=== PATIENT | female | born 1930 | race Caucasian/White ===

== ENCOUNTER 2017-10-20 09:55 | Inpatient (IN) ==
[2017-10-20] MEDS ORDERED: ONDANSETRON 4 MG/2 ML INJECTION IVP ONE (10:09)
[2017-10-20] MEDS ORDERED: SALINE FLUSH 10ml SYRINGE IVF PRN (10:09)
[2017-10-20] MEDS ORDERED: NS 1,000 ML IV SCH ×2 (10:30→14:30)
[2017-10-20] MEDS ORDERED: NITROGLYCERIN 50MG INJECTION IV ONE (10:48)
[2017-10-20] MEDS ORDERED: MIDAZOLAM 2mg/2ml INJECTION ONE ×2 (10:48→12:23)
[2017-10-20] MEDS ORDERED: FentaNYL 100 MCG/2 ML INJECTION ONE (10:48)
[2017-10-20] MEDS ORDERED: LIDOCAINE 1% (10mg/ml) 30ml SDV INJ ONE (10:49)
[2017-10-20] MEDS ORDERED: SALINE FLUSH 10ml SYRINGE ONE (10:49)
[2017-10-20] MEDS ORDERED: HEPARIN 1,000 UNITS/500 ML PREMIX (*CVL ONLY*) IV ONE (10:49)
[2017-10-20] MEDS ORDERED: BACITRACIN 50,000 UNIT INJECTION ONE (10:49)
--- NOTE | 2017-10-20 11:03 | XRay Report ---
Indication: chest pain PROCEDURE: XR chest 1V: Encounter: Initial Comparison: None FINDINGS: The lungs are clear. There is no abnormal airspace opacity, pleural effusion or pneumothorax identified. The heart size, pulmonary vasculature and mediastinum are within normal limits. Chronic right rotator cuff tear. IMPRESSION: No acute cardiopulmonary abnormality. .
[2017-10-20] MEDS ORDERED: PHENYLEPHRINE INJ 10 MG/ML VIAL IV ONE (11:30)
[2017-10-20] MEDS ORDERED: ATROPINE 1 MG/10 ML SYRINGE ONE (11:31)
[2017-10-20] MEDS ORDERED: HEPARIN 1,000unit/ml INJECTION 10ml IVP ONE (13:31)
[2017-10-20] MEDS ORDERED: SALINE FLUSH 10ml SYRINGE IV PRN (14:30)
[2017-10-20] MEDS ORDERED: PROMETHAZINE 25 MG INJECTION IVP PRN (14:30)
[2017-10-20] MEDS ORDERED: BISACODYL 10 MG SUPPOSITORY RECTALLY PRN (14:30)
[2017-10-20] MEDS ORDERED: ATROPINE 1 MG/ML INJECTION IVP PRN (14:30)
[2017-10-20] MEDS ORDERED: NITROGLYCERIN 0.4 MG SUBLINGUAL TABLET SL PRN (14:30)
[2017-10-20] MEDS ORDERED: HYDROCODONE/APAP 5mg/325mg TABLET PO PRN (14:30)
[2017-10-20] MEDS ORDERED: LORazepam 0.5 MG TABLET PO PRN (14:30)
[2017-10-20] MEDS ORDERED: Bisacodyl EC TAB 5 MG TABLET PO PRN (14:30)
[2017-10-20] MEDS ORDERED: METOCLOPRAMIDE 10mg/2ml INJECTION IVP PRN (14:30)
[2017-10-20] MEDS ORDERED: ACETAMINOPHEN 325 MG TABLET PO PRN (14:30)
[2017-10-20] MEDS ORDERED: MORPHINE SULFATE 4mg INJECTION IVP PRN ×2 (14:30)
[2017-10-20] MEDS ORDERED: MAG-AL + SIM ORAL LIQUID 30ml PO PRN (14:30)
[2017-10-20] MEDS ORDERED: ONDANSETRON 4 MG/2 ML INJECTION IVP PRN (14:30)
[2017-10-20 15:21] VITALS: BMI 29.2
--- NOTE | 2017-10-20 15:21 | XRay Report ---
Indication: post ppm PROCEDURE: XR chest 1V: Encounter: Initial Comparison: October 20, 2017 Findings: New left dual lead cardiac pacemaker with right atrial and right ventricular leads. Increasing interstitial prominence compared to the prior study with trace left basilar atelectasis. No pneumothorax or definite pleural effusion. Heart size and mediastinal contours are stable. Impression: 1. New left pacemaker without evidence of immediate complication. 2. Mild pulmonary vascular congestion. .
[2017-10-20] MEDS: CEFAZOLIN 1 G in NS 100 ML IV SCH ×2 (15:54→22:31)
--- NOTE | 2017-10-20 19:15 | Cardiology History & Physical ---
History of Present Illness Chief complaint: bradycardia HPI: 87 yo wf w/o prior known heart disease who was [place] [facility] from the primary doctor's office due to bradycardia. She hasn't been feeling well now for about a week. She's being expressing more fatigue and shortness of breath. She had an episode of fatigue and dyspnea , on Wednesday when she went shopping at the mall went only to one store. Last evening also she wasn't feeling well, she had a second "spell ", this time she got shortness of breath lightheadedness and nauseated. She has been experiencing some left shoulder pain radiating to the scapula and down the left upper chest that has been happening with and without activity. denies injury or fall and no change with shoulder movement. In ER evaluation showed her to be in complete heart block heart rate in the 30s and blood pressure stable. She denies any recent falls or syncope. No new meds were started. She denies a previous heart catheterization stress test,known [place] or dysrhythmia. Hx is limited by her dementia Review of Systems All systems PM: 10-point ROS was reviewed, no additional remarkable complaints except - Constitutional Constitutional: Present: weakness. Absent: chills, fever(s), night sweats, weight gain, [facility] Mouth/Throat: Absent: sore throat, scratchy throat - Cardiovascular Cardiovascular: Present: chest pain, dyspnea on exertion. Absent: palpitations , syncope, orthopnea, edema Vascular: Absent: pedal edema - Respiratory Respiratory: Present: dyspnea, dyspnea on exertion. Absent: cough, hemoptysis, wheezing, chest congestion, excessive phlegm production - Gastrointestinal Gastrointestinal: Present: other (abnormal urinalysis without any dysuria hematuria or cloudy urine no flank pain fever or chills that was about 2 weeks ago and she was not recommended to take antibiotics). Absent: abdominal pain - Genitourinary Genitourinary: Absent: flank pain, urinary frequency, urinary urgency - Musculoskeletal Musculoskeletal: Present: abnormal gait (uses a cane to get around and has been the case for years no recent change) - Neurological Neurological: Present: dizziness, memory loss, weakness. Absent: abnormal speech, confusion, convulsions, focal weakness, frequent falls, lack of coordination - Psychiatric Psychiatric: Absent: depression [facility] Patient Stated Medical History Dementia Yes Cataracts Yes: Had Surgery Cardiac Arrhythmia Yes: 3rd Degree Block 10/20/17 Hx Incontinence Yes Hx Urinary Tract Infection Yes: Hx of frequent Depression Yes Clinic Medical History (Last Reviewed 10/20/17 @ 08:39 by DAVID Cody) Heart block (Acute Medical) Macular degeneration (Chronic Medical) IFG (impaired fasting glucose) (Chronic Medical) Venous insufficiency (Chronic Medical) GERD (gastroesophageal reflux disease) (Chronic Medical) Hypercholesteremia (Chronic Medical) HTN (hypertension) (Chronic Medical) Cystocele with rectocele (Chronic Medical) Surgical History: DIONNE and one ovary removed with part of 2nd ovary removed 1973. cholecystectomy 1976. ovarian cyst removed 1976. cataract removed OU 2007 Family History: Family History (Last Reviewed 10/20/17 @ 08:39 by DAVID Cody) Father , age 78 Prostate cancer Mother , age 87 CVA (cerebral vascular accident) CAD (coronary artery disease) Type 2 diabetes mellitus Sister CVA (cerebral vascular accident) Sister Type 2 diabetes mellitus CAD (coronary artery disease) HTN (hypertension) Myocardial infarct Brother No problems noted. Brother HTN (hypertension) CVA (cerebral vascular accident) Brother Cancer of appendix Brother Melanoma of nose Brain aneurysm Paternal Aunt Colon cancer Maternal Uncle Colon cancer - Social History Smoking status: Never smoker Substance use type: does not use Alcohol intake frequency: does not drink Current residence: [facility] Medications Home Medications Medication Instructions Recorded Confirmed Type Aspirin [Aspirin EC] 81 mg PO DAILY 10/20/17 10/20/17 History Calcium Carbonate 600 mg PO DAILY 10/20/17 10/20/17 History Cholecalciferol (Vitamin D3) 2,000 unit PO DAILY 10/20/17 10/20/17 History [Vitamin D3] Docusate Sodium [Colace] 100 mg PO BID 10/20/17 10/20/17 History HydroCHLOROthiazide [Hydrodiuril] 12.5 mg PO WB 10/20/17 10/20/17 History Memantine HCl 5 mg PO BID 10/20/17 10/20/17 History Multivitamin [One Daily 1 tab PO DAILY 10/20/17 10/20/17 History Multivitamin] Ranitidine [Zantac] 150 mg PO BID 10/20/17 10/20/17 History Simvastatin [Zocor] 10 mg PO HS 10/20/17 10/20/17 History Spironolactone [Aldactone] 12.5 mg PO DAILY 10/20/17 10/20/17 History Allergies Allergy/AdvReac Type Severity Reaction Status Date / Time Sulfa (Sulfonamide Allergy Unknown RASH Verified 10/20/17 10:06 Antibiotics) Exam Vital signs: Temperature 98.2 F 10/20/17 13:32 Pulse Rate 70 10/20/17 17:18 Respiratory Rate 16 10/20/17 14:17 Blood Pressure 146/65 H 10/20/17 17:18 Pulse Oximetry 96 10/20/17 17:18 - Constitutional no acute distress - Routine HEENT Exam Head: Present: normocephalic, atraumatic Eye: Present: EOMI, PERRL ENT: Present: mucous membranes moist - Routine Neck Exam Present: normal carotid upstroke. Absent: JVD, carotid bruit, lymphadenopathy, thyromegaly - Routine Chest/Breast/Axilla Exam Chest wall: Absent: tenderness, mass - Routine Respiratory Exam Present: CTA bilaterally - Routine Cardiovascular Exam Present: murmur (3/6 systolic ejection murmur), bradycardia (regular rhythm) - Routine Abdominal Exam Present: soft, normoactive bowel sounds, non distended - Routine Extremities Exam Present: no edema, pulses intact, normal capillary refill. Absent: cyanosis, clubbing - Routine Skin Exam Present: intact. Absent: cyanosis, erythema - Routine Neurological Exam Present: alert, CN II-XII intact, moving all extremities, vision grossly intact , normal speech. Absent: motor deficit, hearing grossly intact, hemineglect, facial asymmetry - Routine Psychiatric Exam Present: normal thought process, cooperative. Absent: depressed Results 10/21/17 04:01 10/21/17 04:01 Cardiac Enzymes 10/20/17 Range/Units Unknown AST 30 (14-36) U/L Troponin I < 0.012 (0-0.12) ng/ml B-Natriuretic Peptide 6400 H (0-175) pg/mL Coagulation 10/20/17 Range/Units Unknown B-Natriuretic Peptide 6400 H (0-175) pg/mL CBC 10/20/17 Range/Units Unknown WBC 7.6 (4.5-11.0) T/MM3 RBC 4.19 (4.00-5.20) M/MM3 Hgb 13.0 (12-16) GM/DL Hct 40.9 (36-46) % Plt Count 156 (130-400) T/MM3 Neut # (Auto) 6.0 (1.8-7.7) T/MM3 Lymph # (Auto) 1.0 (1-4.8) T/MM3 Carroll # (Auto) 0.5 (0-0.8) T/MM3 Eos # (Auto) 0.1 (0-0.5) T/MM3 Baso # (Auto) 0.0 (0-0.2) T/MM3 Comprehensive Metabolic Panel 10/20/17 Range/Units Unknown Sodium 142 (134-144) MEQ/L Potassium 3.8 (3.6-5) MEQ/L Chloride 104 (98-107) MEQ/L Carbon Dioxide 29 (22-30) MEQ/L BUN 14.0 (7-17) MG/DL Creatinine 0.9 (0.7-1.2) MG/DL Glucose 111 H (65-110) MG/DL Calcium 9.2 (8.4-10.2) MG/DL AST 30 (14-36) U/L ALT 32 (9-52) U/L Alkaline Phosphatase 97 (38-126) U/L Total Protein 7.0 (6.3-8.2) G/DL Albumin 3.8 (3.5-5.0) G/DL Intake and Output 10/20/17 10/20/17 10/20/17 06:59 14:59 22:59 Intake Total 0 / 0 1100 / 1100 Balance 0 / 0 1100 / 1100 Intake: IV 1100 / 1100 Cefazolin 1 g In Ns 100 100 / 100 ml @ 200 mls/hr IV Q8H MIKE Rx#:[id number] Ns 1,000 ml @ 100 mls/hr 1000 / 1000 IV .Q10H MIKE Rx#: [id number] Oral 0 / 0 Other: Weight 68.1 kg 68 kg Patient Weight 10/21/17 06:59 Weight 68 kg - EKG Interpretation EKG: sinus rhythm, no acute changes (of ischemia, nonspecific T-wave abnormality ) EKG shows: bradycardia (complete heart block QRS complex not wide heart rate in the 30s up to 40) EKG interpretations - Dysrhythmias Sinus rhythms and dysrhythmias: sinus rhythm - Blocks, axis, hypertrophy, ST abn AV and intraventricular conduction: complete (3) AV block Hospital Course This is a general summary of the patient's hospital course. For more details refer to the complete medical record. Time spent with patient: greater than 35 minutes DVT Prophylaxis: SCD's Assessment and Plan - Assessment and Plan Complete heart block symptomatic Dyspnea Chest pain Dizziness Hypertension Chronic memory loss/mild dementia Systolic murmur/valvular heart disease Elevated BNP/CHF probably due to complete heart block Transcutaneous external pacemaker for backup pacing Echocardiogram obtained and reviewed at bedside in ED regarding LVFX and valves Atropine given in the catheter lab Heart catheterization regarding chest pain and complete heart block Dual-chamber permanent pacemaker Gentle IV fluids to increase stroke volume and cardiac output and is bradycardic patient Isopril infusion is not available Indication alternatives risks and benefits of heart catheter and pacemaker implant were discussed in detail with the patient and her son and daughter and they're in agreement and they give informed consent Patient is taken to the [facility] directly from the emergency room after that outpatient telemetry observation bed
[2017-10-20] MEDS: MEMANTINE 5 MG TABLET PO SCH (21:20)
[2017-10-20] MEDS: MINOCYCLINE 100 MG CAPSULE PO SCH (21:20)
[2017-10-20] MEDS: RANITIDINE 150 MG TABLET PO SCH (21:21)
[2017-10-20] MEDS: DOCUSATE SODIUM 100 MG CAPSULE PO SCH (21:21)
[2017-10-20] MEDS: SIMVASTATIN 10 MG TABLET PO SCH (21:21)
--- NOTE | 2017-10-21 08:50 | XRay Report ---
INDICATION: post ppm PROCEDURE: CHEST 2-VIEWS UPRIGHT (PA & LAT) Encounter: Initial COMPARISON: October 20, 2017 FINDINGS: Left pacemaker is stable in appearance. No visible pneumothorax. New small left pleural effusion with mild vascular congestion. Right lung is grossly clear. Heart size and mediastinal contours are stable. Impression: Stable appearance of the left pacemaker. .
[2017-10-21] MEDS: MINOCYCLINE 100 MG CAPSULE PO SCH ×3 (09:07→20:24)
[2017-10-21] MEDS: ASPIRIN *EC* 81 MG TABLET PO SCH ×2 (09:14→09:54)
[2017-10-21] MEDS: RANITIDINE 150 MG TABLET PO SCH ×3 (09:14→20:24)
[2017-10-21] MEDS: SPIRONOLACTONE 25 MG TABLET PO SCH ×2 (09:14→09:53)
[2017-10-21] MEDS: MEMANTINE 5 MG TABLET PO SCH ×3 (09:14→20:24)
[2017-10-21] MEDS: DOCUSATE SODIUM 100 MG CAPSULE PO SCH ×3 (09:14→20:25)
[2017-10-21] MEDS: CALCIUM CARBONATE 600 MG TABLET PO SCH ×2 (09:14→09:54)
[2017-10-21] MEDS: MULTI-VITAMIN PLAIN TABLET PO SCH ×2 (09:14→09:54)
[2017-10-21] MEDS: CARVEDILOL 3.125 MG TABLET PO SCH ×2 (09:53→18:04)
--- NOTE | 2017-10-21 10:08 | Cardiology Progress Note ---
Subjective Interval history: Sandra is feeling much better. denies ancisioanl pain cp or dyspnea. has been up to BR. chronically incontinent to urine . no BM yet. no dizziness. no pain at her heart cath or pacemaker sites. PPM check shows NL FX. CXR mild pulm congestion good PPM position and tiny L pleural effsuion. labs ok. EKG SR INTELLIGENCE AGENT 100% tele INTELLIGENCE AGENT SR has been on chrnoic HCTZ/spironolactone appernatly for LE edema/mild chronic CHF although Hx islimted by memmory probems and daughter is uncertain. arrangement with case checker regarding home health care. Exam Vital signs: Temperature 97.2 F 10/21/17 08:41 Pulse Rate 76 10/21/17 08:41 Respiratory Rate 14 10/21/17 08:41 Blood Pressure 126/65 10/21/17 08:41 Pulse Oximetry 91 10/21/17 08:41 - Constitutional no acute distress - Routine HEENT Exam Head: Present: normocephalic, atraumatic Eye: Present: EOMI, PERRL ENT: Present: mucous membranes moist - Routine Neck Exam Present: supple, carotid bruit, normal carotid upstroke. Absent: JVD - Routine Chest/Breast/Axilla Exam Chest wall: Present: pacemaker (incision shows very mild swelling above pacer .wound well approxiamted.no erythema tenderness or d/c) - Routine Respiratory Exam Present: CTA bilaterally. Absent: dyspnea - Routine Cardiovascular Exam Present: RRR, murmur (3/6 KISHOR ,no AI m) - Routine Abdominal Exam Present: soft, normoactive bowel sounds, non distended, non tender. Absent: distended, organomegaly - Routine Extremities Exam Present: no edema, normal capillary refill. Absent: cyanosis, clubbing - Routine Skin Exam Present: intact (R wrist dry and NL 3+ radial oulse ). Absent: cyanosis, erythema - Routine Neurological Exam Present: alert, oriented X3, CN II-XII intact, moving all extremities, vision grossly intact, hearing grossly intact, normal speech. Absent: motor deficit, hemineglect, facial asymmetry - Routine Psychiatric Exam Present: normal affect, normal thought process, good judgment. Absent: depressed, anxious Results 10/21/17 04:01 10/21/17 04:01 - Imaging and Cardiology Echo: report reviewed Cardiac cath: report reviewed EKG results: report reviewed Imaging & Cardiology Narrative: 10/21/17 10:21 CXR reviewed personally - EKG Interpretation EKG: sinus rhythm (INTELLIGENCE AGENT), no acute changes Assessment and Plan - Assessment and Plan CHB s/p PPM noncardiac CP CHF A/C probably acute compinent d/t CHB and chronic component suspected d/t valvular heart disease. CXR shows mild congestion , clinically euvolemic .BP reviewed.will simply continue chronic mild diuretics and revaluate CXR and BNP tomorrow. start HF RX, gustavo and BB and watch in the hospital for BP and clinical monitoring over night. CHF education valvular heart disease /AI /MR medical Rx increase activity and ambulate Hospital Course Summary Disclaimer: The visit summary below is not to be considered part of the above Progress Note.
[2017-10-21] MEDS ORDERED: PNEUMOCOCCAL 23 VACCINE 0.5ml INJECTION IM ONE (15:42)
[2017-10-21] MEDS: SIMVASTATIN 10 MG TABLET PO SCH (20:24)
[2017-10-21] MEDS ORDERED: LISINOPRIL 2.5 MG TABLET PO SCH (21:00)
[2017-10-22] MEDS ORDERED: PNEUMOCOCCAL VAC ADMIN CHARGE INJ ONE (07:27)
--- NOTE | 2017-10-22 08:09 | Echocardiogram ---
DATE: 10/21/2017 INDICATION Complete heart block, atypical chest pain, aortic stenosis murmur. TECHNICAL QUALITY Technically good 2-D, M-mode, Doppler echocardiographic images were submitted for interpretation. The echocardiogram was reviewed at the time of image acquisition at the bedside in the emergency room. FINDINGS 1. CARDIAC CHAMBERS. Left atrial size is upper-normal range, measured around 3.6. Visually appears to be mildly enlarged nevertheless. Volume was not measured. All other cardiac chambers are normal in size. Aortic root diameter is normal. 2. LEFT VENTRICLE. Analysis reveals wall thickness of 10 mm. Wall motion analysis shows normal systolic function, hyperdynamic left ventricle. Ejection fraction is visually estimated about 70%. Diastolic function assessment is limited in this patient in heart block and bradycardia. MVDT measured 348 milliseconds which is prolonged. 3. VALVES. Aortic valve exhibits moderate calcification and sclerosis. Valve opening appears restricted to a mild to moderate degree. A bicuspid valve appears less likely but could not be entirely excluded. There is a somewhat dominant noncoronary cusp which is quite restricted in opening. The other leaflets appear also sclerosed with preserved opening. Mitral valve exhibits moderate annular calcification present. Valve opening is normal. Mitral valve leaflet sclerosis is present. I don't see any vegetation on any of the valves. Tricuspid valve exhibits minimal sclerosis, normal valve excursion. There is some papillary muscle calcification, especially seen in the right heart. 4. DOPPLER. Shows at least moderate mitral regurgitation. There is mitral stenosis present based on a mean pressure gradient of 5 mmHg. Maximum gradient was 13 mmHg. There is aortic stenosis present with a peak flow velocity at the aortic valve 2.6 m/sec, LVOT 1.3 m/sec, maximum and mean pressure gradient of 27 and 16 mmHg. LVOT diameter of 1.9 cm calculates an aortic valve area of 1.3 cm2. This is consistent with moderate aortic valve stenosis. There is moderate aortic regurgitation present. There is mild to moderate tricuspid regurgitation. Possible trivial pulmonic insufficiency. Mild pulmonary hypertension with systolic PA pressure estimated at 45 mmHg per Bernoulli equation and CVP is suggested to be normal based on normal IVC caliber and respiratory collapse. RV size and contractility appear normal. No evidence of pericardial effusion, intracardiac masses, vegetations or clots. Bradycardia is present. IMPRESSION 1. Left atrial enlargement. 2. Normal LV systolic function, hyperdynamic actually with ejection fraction of 70%. 3. Up to moderate calcific aortic valve stenosis with a valve area of 1.3 cm2. 4. Moderate aortic regurgitation. 5. Moderate mitral regurgitation. 6. Mild to moderate mitral stenosis. 7. Mild tricuspid regurgitation. 8. Mild pulmonary hypertension. 9. Normal central venous pressure. 10. Bradycardia. MTDD
--- NOTE | 2017-10-22 08:33 | XRay Report ---
INDICATION: CHF PROCEDURE: CHEST 2-VIEWS UPRIGHT (PA & LAT) Encounter: Initial COMPARISON: October 21, 2017 FINDINGS: Left pacemaker is stable in position. No pneumothorax. Continued mild interstitial prominence with small pleural effusions. No lobar consolidation. Heart size and mediastinal contours are stable. Impression: Continued evidence of mild CHF. .
[2017-10-22] MEDS: MINOCYCLINE 100 MG CAPSULE PO SCH (09:03)
[2017-10-22] MEDS: ASPIRIN *EC* 81 MG TABLET PO SCH (09:48)
[2017-10-22] MEDS: DOCUSATE SODIUM 100 MG CAPSULE PO SCH (09:49)
[2017-10-22] MEDS: SPIRONOLACTONE 25 MG TABLET PO SCH (09:49)
[2017-10-22] MEDS: RANITIDINE 150 MG TABLET PO SCH (09:49)
[2017-10-22] MEDS: CARVEDILOL 3.125 MG TABLET PO SCH (09:50)
[2017-10-22] MEDS: MULTI-VITAMIN PLAIN TABLET PO SCH (09:51)
[2017-10-22] MEDS: CALCIUM CARBONATE 600 MG TABLET PO SCH (09:51)
[2017-10-22] MEDS: MEMANTINE 5 MG TABLET PO SCH (09:52)
[2017-10-22 10:40] VITALS: RESP 16
--- NOTE | 2017-10-22 11:57 | Cardiac Catheterization Report ---
DATE OF SERVICE 10/20/2017 PROCEDURE PERFORMED Transradial left heart catheterization, LV gram, coronary angiogram, aortic root injection. Moderate conscious sedation time. (Total sedation time approximately 1.5 hours including permanent pacemaker implant. See separate pacemaker report.) INDICATION Elderly lady who presented with a symptomatic complete heart block. She has been having also left upper chest pressure with left shoulder/upper arm pain and dyspnea. She is counseled on the indication, alternatives, risks and benefits of heart catheterization. She and her family gave consent. She also manifests an aortic stenosis murmur. DESCRIPTION OF PROCEDURE The patient was brought to the cardiac cath laboratory in stable condition-- stable blood pressure but heart rate in the 30s and low 40s. IV fluids were running. Went ahead and administered 1 mg of Versed, 25 mcg of fentanyl for conscious sedation. Oximetry and tidal CO2 were monitored by independent trained RN. Also close monitoring of hemodynamics. Patient received only 150 mcg of nitroglycerin and 1500 units of heparin intraarterially. No verapamil. The rationale for that is the patient's bradycardia, concern about potential hypotension, also planned permanent pacemaker to follow and ideally without significant anticoagulation on board to lower chances for pacemaker site hematoma. Shortly after nitroglycerin administration - necessary to prevent spasm of the radial artery, patient's blood pressure dropped mostly in the 70s and came up quickly with administration of a fluid bolus. Patient also did receive IV atropine which brought her heart rate up from the 30s to the 40s and blood pressure stabilized nicely. There was no immediate complications from the procedure and as blood pressure remained stable and with only a small amount of heparin on board, I elected to remove the arterial sheath to prevent clot formation. TR Band was deployed in the usual fashion. There was no immediate complication. The patient remained in the analytical lab analyst, being prepared for permanent pacemaker implantation. METHODOLOGY The right wrist was prepped and draped in the usual sterile fashion. I injected lidocaine 1% in the right wrist, amount of approximately 1.5 ml. I accessed the right radial artery without difficulty using modified Seldinger percutaneous technique. 6-Amharic slender arterial sheath was introduced in place. I used micropuncture kit to cannulate the radial artery. I used a Frederic catheter to perform the coronary angiogram, left heart catheterization, LV gram and aortic root injection to visualize the aortic valve. Please refer to the printed out hemodynamics. As the patient was relatively hypotensive, interpretation of the transaortic pressure gradient should be correlated with clinical and echocardiographic findings. LV gram shows normal LV size, hypercontractile, EF of 75%. There is significant mitral regurgitation present in the moderate to severe range, estimated about 3+. Mitral annular calcification is present. Aortic root injection shows a sclerotic and calcified aortic valve. Opening is restricted. The patient is bradycardic. Restriction of opening appears to be in the moderate range. There is aortic regurgitation present, estimated at 2-3+ . Mitral regurgitation is estimated at 3+. CORONARY ANGIOGRAM Left main coronary artery is large and normal. Left circumflex artery is nondominant vessel, has mild plaquing of about 30-40%, nonocclusive . Low obtuse marginal branch is medium caliber and is free from occlusive disease. LAD is a relatively large caliber and very important system with a very large diagonal branch, larger than the LAD itself. The LAD/diagonal system appear free from occlusive disease, exhibits scattered plaquing. Right coronary artery is a relatively large caliber vessel, dominant, exhibits diffuse mild plaquing less than 50%, especially seen in the mid and distal segments but nothing occlusive. Large RPLB branch appears normal. Small to medium caliber RPDA is free from occlusive disease. IMPRESSION 1. Mild nonocclusive coronary artery disease. 2. Normal LV size and systolic function, EF of 70% (hyperdynamic). 3. Significant mitral regurgitation (up to 3+). 4. Significant aortic regurgitation (2-3+). 5. Calcified aortic valve stenosis. 6. Patient is bradycardic and transiently hypotensive during the procedure. Permanent pacemaker is following. See report. MTDD
[2017-10-22 12:12] VITALS: BP 124/66; PULSE 67; TEMP 97.5; O2SAT 93
--- NOTE | 2017-10-22 12:44 | Discharge Summary ---
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 - Radiology Radiology: Chest x-ray showed mild pulmonary congestion a good pacemaker lead position and no evidence of complications History of Present Illness HPI: 87 yo wf w/o prior known heart disease who was referred to [facility] [place] room from the primary doctor's office due to bradycardia. She has been feeling well now for about a week. She's being expressing more fatigue and shortness of breath. She had an episode on Wednesday when she went shopping at the mall when to only one store. Last also she wasn't feeling well, she had a second "spell "she got shortness of breath and lightheadedness and nauseated. She has been experiencing some left shoulder pain radiating to the scapula and down the left upper chest. In ER evaluation showed her to be in complete heart block heart rate in the 30s and blood pressure stable. She denies any recent falls or syncope. No new meds. She denies a previous heart catheterization stress test [place] or dysrhythmia. 10/22/17 12:47 Sandra had a stable hospital course . She has done very well following pacemaker insertion. Daughter noticed on exam a slightly more swelling of the pacemaker site which I was able to verify just above the incision. Patient denies any pain no drainage no fever has not needed any pain medicine. Has been ambulatory down the hallway to nursing station without any shortness of breath and chest pain or dizziness. Her repeat a chest x-ray still shows mild interstitial congestion good lead position. She was kept another night in the hospital to address her heart failure better, adjust medications, watch her volume status and repeat labs and x-ray. Also heart failure education was provided ProBNP is down significantly only on mild oral diuretics . She also appears asymptomatic and quite functional with normal oxygen saturation on room air . Her exam is consistent with euvolemic state and her lungs are clear to auscultation Her blood pressure is borderline low 110s to 120s over 60s, low diastolic blood pressure due to aortic regurgitation and appears entirely asymptomatic. the patient unfortunately appears to be an unreliable historian due to memory problems .So in order to allow a better perfusion blood pressure, and this patient with combined aortic valve disease, I would be inclined to discontinue her lisinopril as the risk from this heart failure medicine at this time appears to outweigh the benefit. 10/22/17 12:59 10/22/17 13:16 Hospital Course This is a general summary of the patient's hospital course. For more details refer to the complete medical record. Time spent with patient: greater than 35 minutes DVT Prophylaxis: SCD's Exam Vital signs: Temperature 97.5 F 10/22/17 12:12 Pulse Rate 67 10/22/17 12:12 Respiratory Rate 16 10/22/17 12:12 Blood Pressure 124/66 10/22/17 12:12 Pulse Oximetry 93 10/22/17 12:12 - Constitutional no acute distress, well developed, cooperative - Routine HEENT Exam Head: Present: normocephalic Eye: Present: EOMI, PERRL ENT: Present: mucous membranes moist Nose: moist mucous membranes - Routine Neck Exam Present: normal carotid upstroke. Absent: JVD, carotid bruit, lymphadenopathy, thyromegaly - Routine Respiratory Exam Present: CTA bilaterally - Routine Cardiovascular Exam Present: RRR, murmur (3/6 systolic) - Routine Abdominal Exam Present: soft, normoactive bowel sounds, non distended, non tender. Absent: organomegaly, mass - Routine Extremities Exam Present: no edema, non tender. Absent: cyanosis, clubbing - Routine Skin Exam Present: intact, dry, wounds (pacemaker incision shows a slight swelling just above it, possible tiny hematoma no erythema or drainage wound remains very well approximated the Steri-Strips on.). Absent: cyanosis, erythema, rash ( right radial access site remains excellent and dry without any swelling or erythema to 3+ radial pulse normal capillary refill and temperature of the digits, normal sensorimotor exam) - Routine Neurological Exam Present: alert, oriented X3, CN II-XII intact, moving all extremities, vision grossly intact, hearing grossly intact, normal speech. Absent: motor deficit, altered mental status, hemineglect, facial asymmetry - Routine Psychiatric Exam Present: normal affect, cooperative. Absent: normal thought process (a little confused but appears to be chronic and unchanged from baseline) Results 10/21/17 04:01 10/21/17 04:01 Cardiac Enzymes 10/22/17 Range/Units 04:34 B-Natriuretic Peptide 1180 H (0-175) pg/mL Coagulation 10/22/17 Range/Units 04:34 B-Natriuretic Peptide 1180 H (0-175) pg/mL Intake and Output 10/21/17 10/22/17 10/22/17 22:59 06:59 14:59 Intake Total 240 / 240 Output Total 100 / 100 Balance -100 / -100 240 / 240 Intake: Oral 240 / 240 Output: Urine 100 / 100 Other: Urine Appearance Clear Urine Color Yellow Size of Bowel Movement Moderate # Voids 1 1 # Bowel Movements 1 - Imaging and Cardiology Echo: report reviewed Cardiac cath: report reviewed EKG results: report reviewed Imaging & Cardiology Narrative: 10/22/17 13:22 Chest x-ray labs SVITLANA's and telemetry also reviewed, sinus rhythm with ventricular paced - EKG Interpretation EKG: interpreted by AMADEO, sinus rhythm (ventricular paced) Discharge Plan - Med Rec/Dispo Referrals/Follow Up: Silvestre Dolan MD [Physician] - 11/03/17 12:30 pm (Please check in at 12:15 pm to fill out paper work. ) Kennedi Ashby PA [Family Provider] - 10/29/17 10:45 am Gopaluvjohnnie Instructions: [facility] Congestive Heart Failure, [facility] Pacemaker Implantation, [facility] Heart Cath Trans Rad Prescriptions: New Carvedilol [Coreg] 3.125 mg PO BIDWM #60 tab Minocycline [Minocin] 100 mg PO BID #10 cap Continue Spironolactone [Aldactone] 12.5 mg PO DAILY Simvastatin [Zocor] 10 mg PO HS Docusate Sodium [Colace] 100 mg PO BID Multivitamin [One Daily Multivitamin] 1 tab PO DAILY Cholecalciferol (Vitamin D3) [Vitamin D3] 2,000 unit PO DAILY Aspirin [Aspirin EC] 81 mg PO DAILY Ranitidine [Zantac] 150 mg PO BID HydroCHLOROthiazide [Hydrodiuril] 12.5 mg PO WB Memantine HCl 5 mg PO BID Calcium Carbonate 600 mg PO DAILY
== END 2017-10-22 15:55 | disposition home health service (06) | DRG 242 ==
LOC: ED 09:55 → CATH 13:30 → SRG 13:31
PROVIDERS: ADMIT Internal Medicine Cardiovascular Disease; ATTEND Internal Medicine Cardiovascular Disease